=== PATIENT | male | born 1945 | race Hispanic/Latino ===

== ENCOUNTER 2022-06-29 22:58 | Emergency (ER) | payer MEDICARE ==
[~2022-06-29] VITALS: Ht 160 cm; Wt 72.6 kg
[2022-06-29 23:02] VITALS: BP 131/73
[2022-06-29] MEDS ORDERED: CEPH500B PO (23:50)
[2022-06-30] MEDS ORDERED: DIPH,PERTUSS(ACELL),TET VAC/PF 0.5 ML VIAL IM ONE
== END 2022-06-30 00:43 | disposition home or self-care (01) ==
LOC: EDH 22:58
DX: S00.31XA Abrasion of nose, initial encounter (principal); W18.39XA Other fall on same level, initial encounter; Y93.01 Activity, walking, marching and hiking; Y92.89 Other specified places as the place of occurrence of the external cause; Y99.8 Other external cause status
CPT/HCPCS: 70450; 70486; 72125; 90471; 90715